=== PATIENT | male | born 1995 | race Caucasian/White ===

== ENCOUNTER 2019-12-11 15:56 | Emergency (ER) | payer SELFPAY ==
[~2019-12-11] VITALS: Ht 180.3 cm; Wt 72.6 kg
--- NOTE | 2019-12-11 15:56 | NUR ---
Patient BIB [facility] for pre-booking medical screening exam, transferred to chair A. RN evaluating patient.
[2019-12-11 15:58] VITALS: BP 114/46
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
== END 2019-12-11 16:29 ==
LOC: MED 15:56
DX: B35.4 Tinea corporis (principal); Z00.00 Encounter for general adult medical examination without abnormal findings
CPT/HCPCS: 99283

== ENCOUNTER 2021-07-16 06:55 | Emergency (ER) | payer OTHER ==
[~2021-07-16] VITALS: Ht 180.3 cm; Wt 81.6 kg
--- NOTE | 2021-07-16 06:58 | NUR ---
PT MELVIN BLS. TAKEN TO BED 6
--- NOTE | 2021-07-16 06:58 | NUR ---
Prabhakar anaya in [facility] - 07/16/21 at 0659 by LUDA PT TAKEN TO BED 6
--- NOTE | 2021-07-16 06:59 | NUR ---
Dr. Robert examining patient.
--- NOTE | 2021-07-16 07:08 | NUR ---
X-Ray at bedside.
[2021-07-16 07:11] VITALS: BP 117/65
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
[2021-07-16] MEDS ORDERED: ACETAMINOPHEN EXTRA STRENGTH 500 MG TAB PO ONE (07:35)
[2021-07-16] MEDS ORDERED: ACET-10509 PO (08:00)
[2021-07-16 08:12] VITALS: BP 117/65
== END 2021-07-16 08:12 | disposition home or self-care (01) ==
LOC: MED 06:55
DX: S16.1XXA Strain of muscle, fascia and tendon at neck level, initial encounter (principal); S30.0XXA Contusion of lower back and pelvis, initial encounter; F12.90 Cannabis use, unspecified, uncomplicated; Z79.899 Other long term (current) drug therapy; Z88.8 Allergy status to other drugs, medicaments and biological substances; W18.30XA Fall on same level, unspecified, initial encounter; Y93.89 Activity, other specified; Y92.89 Other specified places as the place of occurrence of the external cause; Y99.8 Other external cause status
CPT/HCPCS: 71045; 72040; 72220; 99284; Q0092